=== PATIENT | male | born 1990 | race Caucasian/White ===

== ENCOUNTER 2016-10-27 08:06 | Emergency (ER) | payer OTHER, MEDICAID ==
[2016-10-27] MEDS ORDERED: TDaP 0.5 ML VIAL IM.VACC ONE (08:22)
== END 2016-10-27 09:39 | disposition home or self-care (01) ==
LOC: ER 08:06
DX: S46.012A Strain of muscle(s) and tendon(s) of the rotator cuff of left shoulder, initial encounter (principal); S60.221A Contusion of right hand, initial encounter; S80.02XA Contusion of left knee, initial encounter; V49.40XA Driver injured in collision with unspecified motor vehicles in traffic accident, initial encounter
CPT/HCPCS: 90471